=== PATIENT | male | born 1965 | race Caucasian/White ===

== ENCOUNTER 2018-09-28 17:00 | Inpatient (IN) | payer MEDICAID, OTHER ==
[~2018-09-28] VITALS: Ht 195.6 cm; Wt 95.3 kg
--- NOTE | 2018-09-28 17:27 | NUR ---
PT IS IN ROOM #1A. DR FULLER EVALUATED THE PT.
[2018-09-28] MEDS ORDERED: VANCOMYCIN IV 1,000 MG in IV DEXTROSE 5% 250 ML IV ONE (17:30)
[2018-09-28] MEDS ORDERED: PIPERACILLIN SODIUM/TAZOBACTAM 3.375 G in IV DEXTROSE 5% 50 ML IV ONE (17:30)
[2018-09-28 17:44] LABS: BASOPHILS # (AUTO) 0.1 K/uL (0.0-8.0); BASOPHILS % (AUTO) 0.4 % (0.0-2.0); EOSINOPHILS # (AUTO) 0.2 K/uL (0.0-0.7); HEMATOCRIT 40.5 % (36.7-47.1); HEMOGLOBIN 13.4 g/dL (12.5-16.3); LYMPHOCYTES # (AUTO) 1.4 K/uL (20.0-40.0); LYMPHOCYTES % (AUTO) 8.3 % (20.5-51.5); MEAN CORPUSCULAR HEMOGLOBIN 28.8 uug (23.8-33.4); MEAN CORPUSCULAR HGB CONC 33 g/dL (32.5-36.3); MEAN CORPUSCULAR VOLUME 87.3 fL (73.0-96.2); MONOCYTES # (AUTO) 1.3 K/uL (2.0-10.0); MONOCYTES % (AUTO) 8.1 % (0.0-11.0); NEUTROPHILS # (AUTO) 13.4 K/uL (1.8-8.9); NEUTROPHILS % (AUTO) 82.2 % (38.5-71.5); PLATELET COUNT (AUTO) 227 K/uL (152-348); RED BLOOD CELL COUNT(AUTO) 4.64 MIL/uL (4.06-5.63); WHITE BLOOD COUNT (AUTO) 16.3 K/uL (3.6-10.2)
[2018-09-28 17:52] LABS: CREATININE 1.3 mg/dL (0.6-1.3); POTASSIUM 3.5 mmol/L (3.5-5.1)
[2018-09-28] MEDS ORDERED: PIPERACILLIN/TAZOBACTAM/D5W 50 ML IV ONE (17:55)
[2018-09-28] MEDS ORDERED: VANCOMYCIN IV 200 ML ONE (17:55)
[2018-09-28 17:58] LABS: BILIRUBIN,DIRECT 0.1 mg/dL (0.0-0.2); BILIRUBIN,TOTAL 0.2 mg/dL (0.2-1.0); TOTAL PROTEIN, SERUM 7.4 g/dL (6.4-8.2)
--- NOTE | 2018-09-28 19:11 | NUR ---
PATIENT LAYING DOWN ON GURNY WITH NO DISTRESS NOTED. RLE WITH REDNESS AND SWOLLEN NOTED. PROVIDED COMFORT AND SAFETY MEASURES.
--- NOTE | 2018-09-28 19:33 | NUR ---
PATIENT WAITING FOR INSURANCE AUTHORIZATION FOR ADMISSION.
--- NOTE | 2018-09-28 20:15 | NUR ---
patient received from ER. a/o x4. no signs of acute distress. v/s stable. IV line patent on right wrist. ID band on. Belongings list completed. will continue plan of care.
[2018-09-28 20:29] VITALS: BP 125/75
[2018-09-28] MEDS ORDERED: ZOLPIDEM 5 MG TABLET PO PRN (23:00)
[2018-09-28] MEDS ORDERED: HYDROCODONE/APAP 10-325 MG TABLET PO PRN (23:00)
[2018-09-28] MEDS ORDERED: ONDANSETRON 4 MG/2 ML VIAL IV PRN (23:00)
[2018-09-28] MEDS ORDERED: ACETAMINOPHEN 325 MG TABLET PO PRN (23:00)
[2018-09-28] MEDS ORDERED: Z GUARD REMEDY PASTE 57 GM TUBE TOP PRN (23:00)
[2018-09-28] MEDS ORDERED: MAGNESIUM HYDROXIDE 30 ML LIQUID UDC PO PRN (23:00)
[2018-09-28] MEDS ORDERED: ENOXAPARIN SODIUM 40 MG/0.4 ML DISP.SYRIN SQ ONE (23:30)
[2018-09-28] MEDS: IV NS 1000 ML 1,000 ML IV PRN (23:58)
[2018-09-29 06:01] VITALS: BP 105/51
[2018-09-29 07:14] LABS: BILIRUBIN,TOTAL 0.3 mg/dL (0.2-1.0); CREATININE 1.1 mg/dL (0.6-1.3); MAGNESIUM 1.8 mg/dL (1.8-2.4); PHOSPHOROUS 3.7 mg/dL (2.5-4.9); POTASSIUM 3.5 mmol/L (3.5-5.1); TOTAL PROTEIN, SERUM 6.2 g/dL (6.4-8.2)
[2018-09-29 07:30] LABS: THYROID STIMULATING HORMONE 0.402 mIU/mL (0.358-3.740)
[2018-09-29 07:32] LABS: EOSINOPHILS # (AUTO) 0.2 K/uL (0.0-0.7); HEMATOCRIT 39.2 % (36.7-47.1); HEMOGLOBIN 12.7 g/dL (12.5-16.3); MEAN CORPUSCULAR HEMOGLOBIN 28.6 uug (23.8-33.4); MEAN CORPUSCULAR HGB CONC 33 g/dL (32.5-36.3); MEAN CORPUSCULAR VOLUME 88.2 fL (73.0-96.2); PLATELET COUNT (AUTO) 217 K/uL (152-348); RED BLOOD CELL COUNT(AUTO) 4.44 MIL/uL (4.06-5.63); WHITE BLOOD COUNT (AUTO) 13.3 K/uL (3.6-10.2)
[2018-09-29 08:26] LABS: NEUTROPHILS % (AUTO) 70.7 % (38.5-71.5)
[2018-09-29 08:27] LABS: LYMPHOCYTES % (AUTO) 16.7 % (20.5-51.5)
[2018-09-29 08:28] LABS: EOSINOPHILS % (AUTO) 1.4 % (0.0-7.0); MONOCYTES % (AUTO) 10.8 % (0.0-11.0)
[2018-09-29 08:29] LABS: BASOPHILS % (AUTO) 0.4 % (0.0-2.0)
[2018-09-29 08:31] LABS: LYMPHOCYTES # (AUTO) 2.2 K/uL (20.0-40.0); NEUTROPHILS # (AUTO) 9.1 K/uL (1.8-8.9)
[2018-09-29 08:32] LABS: BASOPHILS # (AUTO) 0.1 K/uL (0.0-8.0); MONOCYTES # (AUTO) 1.4 K/uL (2.0-10.0)
--- NOTE | 2018-09-29 11:02 | NUR ---
CLINICAL PHARMACY NOTE: VANCOMYCIN PHARMACY TO DOSE Subjective: To start vancomycin in this 53 y/o male for indication of cellulitis Objective: weight 95kg height 195cm BMI 24.9 BUN/Scr 15/1.1 Wbc 13.3 temp 98.5 1gm vanco given in ER 09/28 @ 1730 Assessment/Plan Will start vancomycin 1500mg q11hr for estimated trough of 16.15, first dose today at 1100. Trough ordered before 4th scheduled dose for 09/30 @ 1930. Will check level then and adjust as needed. If renal function were to change, will consider adjusting regimen as well. Otherwise will follow
[2018-09-29 11:04] VITALS: BP 133/67
[2018-09-29] MEDS: VANCOMYCIN IV 1,500 MG in IV DEXTROSE 5% 500 ML IV SCH ×2 (11:54→21:09)
[2018-09-29] MEDS: CEFTRIAXONE 2 G in IV DEXTROSE 5% 100 ML IV SCH (15:12)
[2018-09-29 15:17] VITALS: BP 116/57
--- NOTE | 2018-09-29 18:55 | NUR ---
Patient out to smoke this shift with provider permission and editorial writer supervision. During one incidence he did not ask for permission. The education about calling prior to leaving the unit was given. Patient was compliant the second time with request. A friend brought him some healthy snacks from the store and visited with him on his second smoke break. Quality management also visited the patient around the same time. Gabino Mistry RN
--- NOTE | 2018-09-29 19:30 | NUR ---
patient received lying in bed. a/o x3. no signs of acute distress. v/s stable. comfort and safety measures provided. will continue plan of care.
[2018-09-29 20:14] VITALS: BP 114/55
--- NOTE | 2018-09-29 20:15 | NUR ---
patient went out to smoke with MIXOLOGIST. per orders okay to smoke with supervision.
[2018-09-29] MEDS ORDERED: ENOXAPARIN SODIUM 40 MG/0.4 ML DISP.SYRIN SQ SCH (21:00)
[2018-09-30] MEDS: IV NS 1000 ML 1,000 ML IV PRN (00:39)
[2018-09-30 05:08] VITALS: BP 100/50
--- NOTE | 2018-09-30 05:47 | NUR ---
patient slept intermittently throughout the night. vancomycin and Lovenox administered on my shift and patient tolerated well. a/o x4. no signs of acute distress. IV patent. safety and comfort measures provided. will continue to monitor and endorse care accordingly to morning shift.
[2018-09-30 06:38] LABS: BASOPHILS # (AUTO) 0.1 K/uL (0.0-8.0); BASOPHILS % (AUTO) 0.5 % (0.0-2.0); EOSINOPHILS # (AUTO) 0.2 K/uL (0.0-0.7); EOSINOPHILS % (AUTO) 1.6 % (0.0-7.0); HEMATOCRIT 38.6 % (36.7-47.1); LYMPHOCYTES # (AUTO) 2.7 K/uL (20.0-40.0); LYMPHOCYTES % (AUTO) 18.3 % (20.5-51.5); MEAN CORPUSCULAR HEMOGLOBIN 29.5 uug (23.8-33.4); MEAN CORPUSCULAR HGB CONC 34 g/dL (32.5-36.3); MEAN CORPUSCULAR VOLUME 87.9 fL (73.0-96.2); MONOCYTES # (AUTO) 1.1 K/uL (2.0-10.0); MONOCYTES % (AUTO) 7.5 % (0.0-11.0); NEUTROPHILS # (AUTO) 10.5 K/uL (1.8-8.9); NEUTROPHILS % (AUTO) 72.1 % (38.5-71.5); PLATELET COUNT (AUTO) 252 K/uL (152-348); WHITE BLOOD COUNT (AUTO) 14.5 K/uL (3.6-10.2)
[2018-09-30 07:05] LABS: MAGNESIUM 1.8 mg/dL (1.8-2.4); PHOSPHOROUS 3.3 mg/dL (2.5-4.9); POTASSIUM 3.9 mmol/L (3.5-5.1)
--- NOTE | 2018-09-30 07:20 | NUR ---
Received reportt from shift supervisor rn nurse, patient in bed asleep no distress noted at this time bed in low positions, side rails up x2, call light in reach.
[2018-09-30 08:46] VITALS: BP 112/56
--- NOTE | 2018-09-30 09:26 | NUR ---
CLINICAL PHARMACY NOTE: VANCOMYCIN PHARMACY TO DOSE Subjective: To continue vancomycin in this 53 y/o male for indication of cellulitis Objective: weight 95kg height 195cm BMI 24.9 BUN/Scr 9/1.0 Wbc 14.5 temp 98.3 Trough pending tonight at 1930 Assessment/Plan Will continue vancomycin 1500mg q11hr for estimated trough of 16.15, 3rd dose today at 0900. Trough ordered before 4th scheduled dose for 09/30 @ 1930. RN endorsed to hold if Tr >20. Will check level then and adjust as appropriate. Will follow
[2018-09-30] MEDS: CEFTRIAXONE 2 G in IV DEXTROSE 5% 100 ML IV SCH (09:39)
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
--- NOTE | 2018-09-30 10:25 | NUR ---
Patient gathered his belongings and has left the building.
[2018-09-30] MEDS ORDERED: CULTURELLE CAPSULE PO SCH (21:00)
== END 2018-09-30 10:25 | disposition left against medical advice (07) | DRG 383 ==
LOC: ER 17:00 → MEDSURG3 19:44
PROVIDERS: ADMIT Nurse Practitioner Acute Care; ATTEND Nurse Practitioner Acute Care
DX: L03.115 Cellulitis of right lower limb (principal); E83.51 Hypocalcemia; E11.9 Type 2 diabetes mellitus without complications; I25.10 Atherosclerotic heart disease of native coronary artery without angina pectoris; I25.2 Old myocardial infarction; Z95.5 Presence of coronary angioplasty implant and graft; Z95.1 Presence of aortocoronary bypass graft; T63.301A Toxic effect of unspecified spider venom, accidental (unintentional), initial encounter; Y92.008 Other place in unspecified non-institutional (private) residence as the place of occurrence of the external cause; F17.210 Nicotine dependence, cigarettes, uncomplicated; E88.09 Other disorders of plasma-protein metabolism, not elsewhere classified
CPT/HCPCS: 36415; 71045; 83605; 83735; 84100; 84443; 85025; 85651; 85730; 87040; 87070; 93005; A4663; G0378; J0696; J1650; J2543; J3370; J7030; J7060